=== PATIENT | male | born 1990 | race Caucasian/White ===

== ENCOUNTER 2017-07-09 17:10 | Emergency (ER) | payer SELFPAY ==
[2017-07-09 17:22] VITALS: BP 114/67
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
== END 2017-07-09 18:13 | disposition home or self-care (01) ==
LOC: ER 17:10
DX: J06.9 Acute upper respiratory infection, unspecified (principal); B97.89 Other viral agents as the cause of diseases classified elsewhere; H92.02 Otalgia, left ear; S09.91 Unspecified injury of ear; X58.XXXS Exposure to other specified factors, sequela; R05 Cough; R09.89 Other specified symptoms and signs involving the circulatory and respiratory systems; R50.9 Fever, unspecified; H61.20 Impacted cerumen, unspecified ear; F17.200 Nicotine dependence, unspecified, uncomplicated; Z88.0 Allergy status to penicillin
CPT/HCPCS: 99282

== ENCOUNTER 2018-02-25 13:38 | Emergency (ER) | payer SELFPAY ==
--- NOTE | 2018-02-25 15:43 | RADIOLOGY REPORT (SQ) ---
EXAM DESCRIPTION: CHEST 2 VIEWS COMPLETED DATE/TIME: 02/25/2018 3:30 pm REASON FOR STUDY: Cough, fever, wheezing, COMPARISON: None. EXAM PARAMETERS: NUMBER OF VIEWS: two views TECHNIQUE: Digital Frontal and Lateral radiographic views of the chest acquired. RADIATION DOSE: NA LIMITATIONS: none FINDINGS: LUNGS AND PLEURA: No opacities, masses or pneumothorax. No pleural effusion. MEDIASTINUM AND HILAR STRUCTURES: No masses or contour abnormalities. HEART AND VASCULAR STRUCTURES: Heart normal size. No evidence for failure. BONES: No acute findings. HARDWARE: None in the chest. OTHER: No other significant finding. IMPRESSION: NO ACUTE RADIOGRAPHIC FINDING IN THE CHEST. TECHNICAL DOCUMENTATION: JOB ID: [id number] [employer]- All Rights Reserved Reading location - IP/workstation name: [email or web address]
[2018-02-25] MEDS ORDERED: DEXAMETHASONE SOD PHOS INJ 10 MG/1 ML VIAL IM ONE (16:29)
--- NOTE | 2018-02-25 16:39 | ER Document Report ---
ED Respiratory Problem - General Chief Complaint: Cold Symptoms Stated Complaint: FEVER Time Seen by Provider: 02/25/18 15:06 Mode of Arrival: Ambulatory Information source: Patient Notes: Patient is a 27-year-old male comes to emergency room complaining of shortness of breath cough sore throat fever since Sunday. Patient states he has had a productive cough with yellowish to green sputum. He is tried [id number] medications including NyQuil DayQuil, but has vomited up that this morning. Patient works in construction doing painting and drywall. He denies smoking, and past medical history. TRAVEL OUTSIDE OF THE [place] IN LAST 30 DAYS: No - HPI Patient complains to provider of: Cough, Short of breath Duration: Worse/persistent Initiating Event: Exposure to chemicals, Exposure to dust, URI Quality of pain: Achy Severity: Moderate Pain Level: 3 Context: denies: Hx asthma, Hx COPD, Recent long distance trvl Short of Breath: Moderate Chest pain/discomfort: Constant Cough: Productive Sputum amount: Moderate Sputum color: Green, Yellow Sputum consistency: Thick Associated symptoms: Chills, Congestion, Cough, Earache, Facial pain, PND, Runny nose, Sinus pain/pressure, Short of breath, Sore Throat, Wheezing Worsened by: Exertion Similar symptoms previously: No Recently seen / treated by doctor: No - Related Data Allergies/Adverse Reactions: amoxicillin [Amoxicillin] Allergy (Verified 07/09/17 17:10) Past Medical History - General Information source: Patient - Social History Smoking Status: Never Smoker Cigarette use (# per day): No Chew tobacco use (# tins/day): No Smoking Education Provided: No Frequency of alcohol use: None Drug Abuse: None Family History: Reviewed & Not Pertinent, Arthritis, CAD, CVA, Hyperlipidemia, Hypertension Patient has suicidal ideation: No Patient has homicidal ideation: No Pulmonary Medical History: Denies: Hx Tuberculosis Renal/ Medical History: Denies: Hx Peritoneal Dialysis GI Medical History: Reports: Hx Ulcer Psychiatric Medical History: Reports: Hx Depression - Immunizations Immunizations up to date: Yes Hx Diphtheria, Pertussis, Tetanus Vaccination: Yes Review of Systems - Review of Systems Constitutional: See HPI, Fever EENT: Ear pain, Nose congestion, Nose discharge, Sinus pressure, Sinus discharge , Throat pain Cardiovascular: No symptoms reported Respiratory: See HPI, Cough, Short of breath, Wheezing Gastrointestinal: No symptoms reported Genitourinary: No symptoms reported Male Genitourinary: No symptoms reported Musculoskeletal: No symptoms reported Skin: No symptoms reported Hematologic/Lymphatic: No symptoms reported Neurological/Psychological: No symptoms reported -: Yes All other systems reviewed and negative Physical Exam - Vital signs Vitals: Temp Pulse Resp BP Pulse Ox 98.5 F 71 14 130/77 H 94 02/25/18 13:49 02/25/18 13:49 02/25/18 13:49 02/25/18 13:49 02/25/18 13:49 Interpretation: Hypertensive - Notes Notes: PHYSICAL EXAMINATION: GENERAL: Patient is a well nourished well-developed 27-year-old male who is in no apparent distress at time of physical exam. He does appear to be somewhat uncomfortable and does appear to be slightly pale. HEAD: Atraumatic, normocephalic. EYES: Pupils equal round and reactive to light, extraocular movements intact, sclera anicteric, conjunctiva are normal. ENT: Examination head and upper airway showed nasal mucosa to be moderately erythematous and edematous with some yellowish green rhinorrhea. Bilateral nasal congestion is also noted. Positive maxillary tenderness to palpation. Frontal sinus palpation is negative for discomfort or pain. Examination of the ears show bilateral TMs with some mild cerumen throughout external canals show no erythema. Bilateral TMs are bulging with air-fluid levels noted. There is mild erythema around and surrounding the TM. Further examination of the oral cavity shows moderate amount of erythema in the posterior pharynx with drainage noted yellowish green thick nature. Bilateral tonsils are moderately enlarged with no exudate but moderate amount of erythema. Uvula is midline with erythema but no exudate. Airway is patent currently. NECK: Normal range of motion, supple without lymphadenopathy LUNGS: auscultation patient's lungs mcguire shows bilateral breath sounds breath sounds decreased throughout there is noted to be a respiratory and expiratory wheeze that is faint. No rhonchi or rales are heard. HEART: Regular rate and rhythm without murmurs ABDOMEN: Soft, nontender, nondistended abdomen. No guarding, no rebound. No masses appreciated. Musculoskeletal: Normal range of motion, no pitting or edema. No cyanosis. NEUROLOGICAL: Normal speech, normal gait. Normal sensory, motor exams PSYCH: Normal mood, normal affect. SKIN: Warm, Dry, normal turgor, no rashes or lesions noted. Course - Re-evaluation Re-evalutation: 02/26/18 08:54 Patient was found to be slightly hypoxic with a saturation of 94% however this was repeated and his actual saturation was in the 97-98 range. Patient's course of stay was fairly uneventful and he did start to respond fairly well to the Decadron injection and felt much better. I am sending him home on an antibiotic for his pharyngitis which was pretty prominent. - Vital Signs Vital signs: Temp Pulse Resp BP Pulse Ox 98.3 F 95 20 143/95 H 99 02/25/18 17:30 02/25/18 17:30 02/25/18 17:30 02/25/18 17:30 02/25/18 17:30 Discharge - Discharge Clinical Impression: Upper respiratory infection Qualifiers: URI type: unspecified URI Qualified Code(s): J06.9 - Acute upper respiratory infection, unspecified Pharyngitis Qualifiers: Pharyngitis/tonsillitis etiology: unspecified etiology Qualified Code(s): J02.9 - Acute pharyngitis, unspecified Disposition: HOME, SELF-CARE Instructions: Acetaminophen, Fever ([facility]), Tonsillitis ([facility]), Upper Respiratory Illness ([facility]), Viral Syndrome ([facility]) Additional Instructions: Home and rest. Medications prescribed. As of indicated to you that the pharyngitis is primarily when treating these with antibiotics. The breathing and wheezing will improve with the steroids. Tylenol alternate with Motrin every 4 hours keep the fever down. Push fluids but avoid milk and dairy for the next 48 hours. Should you have any concerns or problems return to ER for recheck. Prescriptions: Azithromycin [Zithromax 250 mg Tablet] 250 mg PO ASDIR PRN #6 tablet PRN Reason: Prednisone 10 mg PO ASDIR PRN 6 Days #1 tab.ds.pk PRN Reason: Pseudoephedrine HCl [Sudafed 12 Hour] 120 mg PO BID #20 tablet.er Forms: Elevated Blood Pressure, Return to Work Referrals: [facility] [NO LOCAL MD] - Follow up as needed
[2018-02-25 17:32] VITALS: BP 143/95
== END 2018-02-25 17:35 | disposition home or self-care (01) ==
LOC: ER 13:38
DX: J06.9 Acute upper respiratory infection, unspecified (principal); J02.9 Acute pharyngitis, unspecified; R50.9 Fever, unspecified; R06.02 Shortness of breath; R05 Cough; R11.10 Vomiting, unspecified
CPT/HCPCS: 99283; 71046; J1100